=== PATIENT | female | born 1995 | race Caucasian/White ===

== ENCOUNTER 2017-03-29 16:02 | Emergency (ER) | payer MEDICAID ==
[~2017-03-29] VITALS: Ht 170.2 cm; Wt 92.1 kg
[2017-03-29 18:34] VITALS: BP 143/75
[2017-03-29] MEDS ORDERED: IBUPROFEN 600 MG TAB PO ONE (19:15)
[2017-03-29] MEDS ORDERED: CYCLOBENZAPRINE HCL 10 MG TAB PO ONE (19:15)
== END 2017-03-29 19:12 | disposition home or self-care (01) ==
LOC: ER 16:17
DX: S46.911A Strain of unspecified muscle, fascia and tendon at shoulder and upper arm level, right arm, initial encounter (principal); V43.62XA Car passenger injured in collision with other type car in traffic accident, initial encounter; Y93.89 Activity, other specified; Y92.89 Other specified places as the place of occurrence of the external cause; Y99.8 Other external cause status
CPT/HCPCS: 93005